=== PATIENT | male | born 1995 | race Caucasian/White ===

== ENCOUNTER 2024-05-12 09:00 | Outpatient (OUT) | payer SELFPAY | END 2024-05-12 09:01 | disposition home or self-care (01) | LOC: SLEEP 05-13 12:44 | PROVIDERS: PCP Family Medicine; Visit Provider Family Medicine | DX: G47.33 Obstructive sleep apnea (adult) (pediatric) (principal); R06.83 Snoring | CPT/HCPCS: 95806 ==